=== PATIENT | male | born 1995 | race Caucasian/White ===

== ENCOUNTER 2016-08-22 09:52 | Inpatient (IN) | payer OTHER ==
[2016-08-22 10:38] VITALS: BMI 31.4
--- NOTE | 2016-08-22 11:25 | HP ---
Admission [facility] Allergies/Adverse Reactions: Allergies Allergy/AdvReac Type Severity Reaction Status Date / Time No Known Allergies Allergy Verified 08/22/16 10:58 - Ebola screening Have you traveled outside of the country in the last 21 days: No Have you had contact with anyone from an Ebola affected area: No Have you been sick,other than usual withdrawal symptoms: No Do you have a fever: No Patient History - Patient Medical History Hx Anemia: No Hx Asthma: No Hx Chronic Obstructive Pulmonary Disease (COPD): No Hx Cancer: No Hx Cardiac Disorders: No Hx Congestive Heart Failure: No Hx Hypertension: No Hx Hypercholesterolemia: No Hx Pacemaker: No HX Cerebrovascular Accident: No Hx Seizures: No Hx Dementia: No Hx Diabetes: No Hx Gastrointestinal Disorders: No Hx Liver Disease: No Hx Genitourinary Disorders: No Hx Sexually Transmitted Disorders: No Hx Renal Disease (ESRD): No Hx Thyroid Disease: No Hx Human Immunodeficiency Virus (HIV): No Hx Hepatitis C: No Hx Depression: Yes Hx Suicide Attempt: No Hx Bipolar Disorder: Yes Hx Schizophrenia: No - Patient Surgical History Past Surgical History: No Hx Neurologic Surgery: No Hx Cataract Extraction: No Hx Cardiac Surgery: No Hx Lung Surgery: No Hx Breast Surgery: No Hx Breast Biopsy: No Hx Abdominal Surgery: No Hx Appendectomy: No Hx Cholecystectomy: No Hx Genitourinary Surgery: No Hx Section: No Hx Orthopedic Surgery: No Anesthesia Reaction: No - PPD History Previous Implant?: Yes Documented Results: Negative w/proof Implanted On Prior [facility] Admission?: Yes Date: 05/11/16 Results: 0 mm - Smoking Cessation Smoking history: Current every day smoker Have you smoked in the past 12 months: Yes Aproximately how many cigarettes per day: 20 Hx Chewing Tobacco Use: No Initiated information on smoking cessation: Yes - Substances Abused Heroin Route: Inhalation Frequency: Daily Amount used: 30 bags Age of first use: 18 Date of Last Use: 08/22/16 Alprazolam (Xanax) Route: Oral Frequency: Daily Amount used: 8mg Age of first use: 15 Date of Last Use: 08/21/16 Alcohol Route: Oral Frequency: Daily Amount used: 1 pint cognac Age of first use: 16 Date of Last Use: 08/20/16 Marijuana/Hashish Route: Smoking Frequency: 1-2 times per week Amount used: 4 grams Age of first use: 13 Date of Last Use: 08/21/16 Admission Physical Exam [facility] - Vital Signs Vital Signs: Vital Signs - 24 hr 08/22/16 10:36 Temperature 99 F Pulse Rate 77 Respiratory 18 Rate Blood Pressure 121/75 Cleared for Admission [facility] - Detox or Rehab [facility] Level of Care: Medically Managed [facility] Breath Alcohol Content Breath Alcohol Content: 0 Urine Drug Screen - Results Drug Screen Negative: No Urine Drug Screen Results: THC-Marijuana, OPI-Opiates, BZO-Benzodiazepines, MTD- Methadone, TCA-Tricyclic Antidepress, OXY-Oxycodone
--- NOTE | 2016-08-22 11:33 | HP ---
COWS - Scale Resting Pulse: 0= [place] 80 or Below Sweatin= Chills/Flushing Restless Observation: 3= Extraneous Movement Pupil Size: 2= Moderately Dilated Bone or Joint Aches: 4=Acute Joint/Muscle Pain Runny Nose/ Eye Tearin= Nasal Congestion GI Upset > 30mins: 2= Nausea/Diarrhea Tremor Observation: 1= Tremor [place], Not Seen Yawning Observation: 2= >3x During Session Anxiety or Irritability: 1=Feels Anxious/Irritable Goose Flesh Skin: 0=Smooth Skin COWS Score: 17 CIWA Score - CIWA Score Nausea/Vomitin Muscle Tremors: 4-Moderate,w/Arms Extend Anxiety: 4-Mod. Anxious/Guarded Agitation: 4-Moderately Restless Paroxysmal Sweats: 1-Minimal Palms Moist Orientation: 0-Oriented Tacttile Disturbances: 3-Moderate Itch/Numb/Burn Auditory Disturbances: 0-None Visual Disturbances: 0-None Headache: 1-Very Mild CIWA-Ar Total Score: 20 Admission ROS [facility] - HPI Chief Complaint: DETOX [place] FOR HEROIN,ALCOHOL AND BENZO DEPENDENCE Allergies/Adverse Reactions: Allergies Allergy/AdvReac Type Severity Reaction Status Date / Time No Known Allergies Allergy Verified 08/22/16 10:58 History of Present Illness: 20 Y/O H/M WITH A HX OF HEROIN,ALCOHOL,XANAX AND MARIJUANA DEPENDENCE SEEKING DETOX [place] Exam Limitations: No Limitations - Ebola screening Have you traveled outside of the country in the last 21 days: No Have you had contact with anyone from an Ebola affected area: No Have you been sick,other than usual withdrawal symptoms: No Do you have a fever: No - Review of Systems Constitutional: Chills, Loss of Appetite, Night Sweats, Changes in sleep EENT: reports: Blurred Vision, Dental Problems (MISSING TEETH) Respiratory: reports: No Symptoms reported Cardiac: reports: Lightheadedness GI: reports: Constipated, Diarrhea, Nausea, Vomiting, Abdominal cramping : reports: No Symptoms Reported Musculoskeletal: reports: Back Pain, Joint Pain, Muscle Pain Integumentary: reports: No Symptoms Reported Neuro: reports: Headache Endocrine: reports: No Symptoms Reported Hematology: reports: No Symptoms Reported Psychiatric: reports: Orientated x3, Anxious Other Systems: Reviewed and Negative Patient History - Patient Medical History Hx Anemia: No Hx Asthma: No Hx Chronic Obstructive Pulmonary Disease (COPD): No Hx Cancer: No Hx Cardiac Disorders: No Hx Congestive Heart Failure: No Hx Hypertension: No Hx Hypercholesterolemia: No Hx Pacemaker: No HX Cerebrovascular Accident: No Hx Seizures: No Hx Dementia: No Hx Diabetes: No Hx Gastrointestinal Disorders: No Hx Liver Disease: No Hx Genitourinary Disorders: No Hx Sexually Transmitted Disorders: No Hx Renal Disease (ESRD): No Hx Thyroid Disease: No Hx Human Immunodeficiency Virus (HIV): No Hx Hepatitis C: No Hx Depression: Yes (AND ANXIETY- GETS KLONOPIN AND SEROQUEL) Hx Suicide Attempt: No Hx Bipolar Disorder: Yes Hx Schizophrenia: No - Patient Surgical History Past Surgical History: No Hx Neurologic Surgery: No Hx Cataract Extraction: No Hx Cardiac Surgery: No Hx Lung Surgery: No Hx Breast Surgery: No Hx Breast Biopsy: No Hx Abdominal Surgery: No Hx Appendectomy: No Hx Cholecystectomy: No Hx Genitourinary Surgery: No Hx Section: No Hx Orthopedic Surgery: No Anesthesia Reaction: No - PPD History Previous Implant?: Yes Documented Results: Negative w/proof Implanted On Prior [facility] Admission?: Yes Date: 05/11/16 Results: 0 mm PPD to be Administered?: No - Reproductive History Patient is a Female of Child Bearing Age (11 -55 yrs old): No (MALE) - Smoking Cessation Smoking history: Current every day smoker Have you smoked in the past 12 months: Yes Aproximately how many cigarettes per day: 20 Hx Chewing Tobacco Use: No Initiated information on smoking cessation: Yes 'Breaking Loose' booklet given: 08/22/16 - Substance & Tx. History Hx Alcohol Use: Yes (COGNAC) Hx Substance Use: Yes (HEROIN/XANAX/MARIJUANA) Substance Use Type: Alcohol, Heroin, Marijuana, Tranquilizers Hx Substance Use Treatment: Yes ([facility]) - Substances Abused Heroin Route: Inhalation Frequency: Daily Amount used: 30 bags Age of first use: 18 Date of Last Use: 08/22/16 Alprazolam (Xanax) Route: Oral Frequency: Daily Amount used: 8mg Age of first use: 15 Date of Last Use: 08/21/16 Alcohol Route: Oral Frequency: Daily Amount used: 1 pint cognac Age of first use: 16 Date of Last Use: 08/20/16 Marijuana/Hashish Route: Smoking Frequency: 1-2 times per week Amount used: 4 grams Age of first use: 13 Date of Last Use: 08/21/16 Family Disease History - Family Disease History Family Disease History: Diabetes: Grandparent (GM) Admission Physical Exam [facility] - Vital Signs Vital Signs: Vital Signs - 24 hr 08/22/16 10:36 Temperature 99 F Pulse Rate 77 Respiratory 18 Rate Blood Pressure 121/75 - Physical General Appearance: Yes: Moderate Distress, Irritable, Anxious HEENTM: Yes: EOMI, Normocephalic, KATE, Pharynx Normal, Nasal Congestion Respiratory: Yes: Chest Non-Tender, Lungs Clear, Normal Breath Sounds, No Respiratory Distress Neck: Yes: Supple, Trachea in good position Cardiology: Yes: Regular Rhythm, Regular Rate, S1, S2 Abdominal: Yes: Normal Bowel Sounds, Non Tender, Soft Genitourinary: Yes: Other (N/C) Back: Yes: Within Normal Limits Musculoskeletal: Yes: full range of Motion, Gait Steady Extremities: Yes: Normal Range of Motion, Non-Tender Neurological: Yes: tourist agent II-XII NML intact, Fully Oriented, Alert, Motor Strength 5/5 Integumentary: Yes: Normal Color, Dry, Warm Lymphatic: Yes: Within Normal Limits - Diagnostic (1) Cannabis dependence Current Visit: Yes Status: Acute (2) Opioid dependence with withdrawal Current Visit: Yes Status: Acute (3) Sedative, hypnotic or anxiolytic dependence with withdrawal, uncomplicated Current Visit: Yes Status: Acute (4) Nicotine dependence Current Visit: Yes Status: Chronic Qualifiers: Nicotine product type: cigarettes Substance use status: uncomplicated Qualified Code(s): F17.210 - Nicotine dependence, cigarettes, uncomplicated (5) Alcohol dependence with uncomplicated withdrawal Current Visit: Yes Status: Acute Cleared for Admission [facility] - Detox or Rehab [facility] Level of Care: Medically Managed Detox Regimen/Protocol: Methadone/Valium [facility] Breath Alcohol Content Breath Alcohol Content: 0 Urine Drug Screen - Results Drug Screen Negative: No Urine Drug Screen Results: THC-Marijuana, OPI-Opiates, BZO-Benzodiazepines, MTD- Methadone, TCA-Tricyclic Antidepress, OXY-Oxycodone
[2016-08-22] MEDS ORDERED: guaiFENesin/D-METHORPHAN HB 10 ML UNIT-DOSE CUPS PO PRN (11:48)
[2016-08-22] MEDS ORDERED: ACETAMINOPHEN 325 MG TABLET (FP) PO PRN (11:48)
[2016-08-22] MEDS ORDERED: MAGNESIUM HYDROX 2400MG/30ML ORAL SUSPENSION 30 ML CUP PO PRN (11:48)
[2016-08-22] MEDS ORDERED: IBUPROFEN 400 MG TABLET (FP) PO PRN (11:48)
[2016-08-22] MEDS ORDERED: MENTHOL/PHENOL 1 EACH UD MM PRN (11:48)
[2016-08-22] MEDS ORDERED: MAGNESIUM CITRATE 300 ML BOTTLE PO PRN (11:48)
[2016-08-22] MEDS ORDERED: P-EPHED 60MG/TRIPROLIDI 2.5MG TABLET PO PRN (11:48)
[2016-08-22] MEDS ORDERED: LOPERAMIDE HCL 2 MG CAPSULE PO PRN (11:48)
[2016-08-22] MEDS ORDERED: MAG HYDROX/AL HYDROX/SIMETH 30 ML UNIT-DOSE CUP PO PRN (11:48)
[2016-08-22] MEDS ORDERED: diazePAM 5 MG TABLET PO ONE (12:52)
[2016-08-22] MEDS ORDERED: METHADONE HCL 10 MG TABLET (FOR DETOX USE ONLY) PO ONE ×2 (12:53→23:00)
[2016-08-22] MEDS: NICOTINE 21 MG/24 HOURS TOPICAL PATCH TD SCH (13:44)
[2016-08-22] MEDS: diazePAM 5 MG TABLET PO SCH ×2 (13:50→22:11)
--- NOTE | 2016-08-22 15:38 | EKG ---
Test Reason : Blood Pressure : / mmHG Vent. Rate : 053 BPM Atrial Rate : 053 BPM P-R Int : 128 ms QRS Dur : 092 ms QT Int : 436 ms P-R-T Axes : 051 077 061 degrees QTc Int : 409 ms SINUS BRADYCARDIA WITH SINUS ARRHYTHMIA WITH OCCASIONAL PREMATURE VENTRICULAR COMPLEXES OTHERWISE NORMAL ECG NO PREVIOUS ECGS AVAILABLE Confirmed by KATARZYNA CRAMER MD ([id number]) on 08/22/2016 3:38:27 PM Referred By: Confirmed By:KATARZYNA CRAMER MD
[2016-08-22] MEDS: diazePAM 5 MG TABLET PO PRN (16:49)
[2016-08-22] MEDS: NICOTINE POLACRILEX 4 MG GUM BUC PRN (18:45)
[2016-08-22 20:15] LABS: URINE APPEARANCE CLEAR; URINE BILIRUBIN NEGATIVE (NEGATIVE); URINE BLOOD NEGATIVE (NEGATIVE); URINE COLOR YELLOW; URINE GLUCOSE (UA) NEGATIVE (NEGATIVE); URINE KETONE NEGATIVE (NEGATIVE); URINE LEUK ESTERASE NEGATIVE (NEGATIVE); URINE NITRITE NEGATIVE (NEGATIVE); URINE PROTEIN NEGATIVE (NEGATIVE); URINE UROBILINOGEN 2.0 E.U/dl E.U./dl (0.2-1.0)
[2016-08-22] MEDS: THIAMINE HCL 100 MG TABLET (FP) PO SCH (22:10)
[2016-08-22] MEDS: diphenhydrAMINE HCL 50 MG CAPSULE PO PRN (22:13)
[2016-08-23] MEDS: diazePAM 5 MG TABLET PO SCH ×3 (05:59→22:26)
[2016-08-23] MEDS: diazePAM 5 MG TABLET PO PRN ×2 (08:45→17:05)
[2016-08-23] MEDS ORDERED: METHADONE HCL 10 MG TABLET (FOR DETOX USE ONLY) PO SCH (10:00)
[2016-08-23 10:41] LABS: MCH 31.3 pg (25.7-33.7); MCHC 33.5 g/dl (32.0-35.9); MEAN CELL VOLUME 93.2 fl (80-96); PLATELET COUNT 240 K/MM3 (134-434); RDW 13.9 % (11.9-15.9); WHITE BLOOD COUNT 8.3 K/mm3 (4.0-10.0)
[2016-08-23] MEDS: NICOTINE 21 MG/24 HOURS TOPICAL PATCH TD SCH (10:46)
[2016-08-23] MEDS: PRENATAL VITAMINS W/ FOLIC ACID TABLET (FP) PO SCH (10:46)
[2016-08-23 11:11] LABS: ALBUMIN 4.1 g/dl (3.4-5.0); ALK PHOS 106 U/L (45-117); ANION GAP 9 (8-16); BILIRUBIN,TOTAL 0.3 mg/dL (0.2-1.0); CALCIUM 8.6 mg/dL (8.5-10.1); CO2 27 mmol/L (21-32); CREATININE 0.8 mg/dL (0.7-1.3); GLUCOSE,RANDOM 102 mg/dL (74-106); SGOT/AST 44 U/L (15-37); SGPT/ALT 78 U/L (12-78); TOT PROT 7.2 g/dl (6.4-8.2)
--- NOTE | 2016-08-23 11:51 | PN ---
[facility] CIWA - CIWA Score Nausea/Vomitin Muscle Tremors: 4-Moderate,w/Arms Extend Anxiety: 4-Mod. Anxious/Guarded Agitation: 4-Moderately Restless Paroxysmal Sweats: 3 Orientation: 0-Oriented Tacttile Disturbances: 1-Very Mild Itch/Numbness Auditory Disturbances: 0-None Visual Disturbances: 0-None Headache: 0-None Present CIWA-Ar Total Score: 19 S COWS - Scale Resting Pulse: 1= [place] 81-100 Sweatin= Chills/Flushing Restless Observation: 1= Difficult to Sit Still Pupil Size: 1= Pupils >than Normal Bone or Joint Aches: 1= Mild Discomfort Runny Nose/ Eye Tearin= Nasal Congestion GI Upset > 30mins: 2= Nausea/Diarrhea Tremor Observation of Outstretched Hands: 2= Slight Tremor Visible Yawning Observation: 1= 1-2x During Session Anxiety or Irritability: 2=Irritable/Anxious Goose Flesh Skin: 3=Piloerection COWS Score: 16 [facility] Progress Note (SOAP) Subjective: nause, sweats, interrupted sleep, anxiety, tremors Objective: 08/23/16 11:51 Laboratory Tests 08/22/16 08/23/16 08/23/16 14:00 06:00 06:00 WBC 8.3 RBC 4.55 Hgb 14.2 Hct 42.4 MCV 93.2 MCHC 33.5 RDW 13.9 Plt Count 240 D MPV 10.0 Sodium 139 Potassium 4.2 Chloride 103 Carbon Dioxide 27 Anion Gap 9 BUN 12 Creatinine 0.8 Creat Clearance w eGFR > 60 Random Glucose 102 Calcium 8.6 Total Bilirubin 0.3 AST 44 H D ALT 78 D Alkaline Phosphatase 106 Total Protein 7.2 Albumin 4.1 Urine Color Yellow Urine Appearance Clear Urine pH 5.0 Ur Specific [place] 1.023 Urine Protein Negative Urine Glucose (UA) Negative Urine Ketones Negative Urine Blood Negative Urine Nitrite Negative Urine Bilirubin Negative Urine Urobilinogen 2.0 e.u/dl Ur Leukocyte Esterase Negative Vital Signs - 24 hr 08/22/16 08/22/16 08/22/16 14:24 18:02 22:29 Temperature 97.1 F L 96.8 F L 96.3 F L Pulse Rate 64 79 67 Respiratory 18 16 18 Rate Blood Pressure 121/76 108/68 107/67 08/23/16 08/23/16 08/23/16 00:32 03:30 06:40 Temperature 96.6 F L Pulse Rate 78 Respiratory 18 18 16 Rate Blood Pressure 102/65 08/23/16 09:38 Temperature 96.0 F L Pulse Rate 87 Respiratory 20 Rate Blood Pressure 111/65 Assessment: 08/23/16 11:51 withdrawal sx Plan: cont detox
--- NOTE | 2016-08-23 12:27 | CONSULT ---
[facility] Psychiatric Consult - Data Date of interview: 08/23/16 Admission source: [facility] Identifying data: Readmission to [facility] for this 20 y/o male seeking detox treatment on for heroin,benzodiazepine,alcohol and marijuana dependence.Patient is single without children,domiciled (lives with his father),unemployed and dependent on his parents for financial support. Substance Abuse History: - Smoking Cessation. Smoking history: Current every day smoker. Have you smoked in the past 12 months: Yes. Aproximately how many cigarettes per day: 20. Hx Chewing Tobacco Use: No. Initiated information on smoking cessation: Yes. 'Breaking Loose' booklet given: 08/22/16. - Substance & Tx. History. Hx Alcohol Use: Yes (COGNAC). Hx Substance Use: Yes (HEROIN/ XANAX/MARIJUANA). Substance Use Type: Alcohol, Heroin, Marijuana, Tranquilizers. Hx Substance Use Treatment: Yes ([facility]). - Substances Abused. Heroin. Route: Inhalation. Frequency: Daily. Amount used: 30 bags. Age of first use: 18. Date of Last Use: 08/22/16. Alprazolam (Xanax) . Route: Oral. Frequency: Daily. Amount used: 8mg. Age of first use: 15. Date of Last Use: 08/21/16. Alcohol. Route: Oral. Frequency: Daily. Amount used: 1 pint cognac. Age of first use: 16. Date of Last Use: 08/20/16. Marijuana/Hashish. Route: Smoking. Frequency: 1-2 times per week. Amount used: 4 grams. Age of first use: 13. Date of Last Use: 08/21/16. Confirmed by patient. Medical History: Patient endorses good general health. 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 Physical/Sexual Abuse/Trauma History: Patient denies. Mental Status Exam - Mental Status Exam Alert and Oriented to: Time, Place, Person Cognitive Function: Good Patient Appearance: Well Groomed Mood: Nervous, Anxious Affect: Mood Congruent Patient Behavior: Appropriate, Cooperative Speech Pattern: Clear Voice Loudness: Normal Thought Process: Goal Oriented Thought Disorder: Not Present Hallucinations: Denies Suicidal Ideation: Denies Homicidal Ideation: Denies Insight/Judgement: Poor Sleep: Poorly, Difficulty falling asleep Appetite: Good Muscle strength/Tone: Normal Gait/Station: Normal Psychiatric Findings - Problem List ([place] 1, 2,3) (1) Alcohol dependence with uncomplicated withdrawal Current Visit: Yes Status: Acute (2) Cannabis dependence Current Visit: Yes Status: Acute (3) Opioid dependence with withdrawal Current Visit: Yes Status: Acute (4) Sedative, hypnotic or anxiolytic dependence with withdrawal, uncomplicated Current Visit: Yes Status: Acute (5) Nicotine dependence Current Visit: Yes Status: Acute Qualifiers: Nicotine product type: cigarettes Substance use status: uncomplicated Qualified Code(s): F17.210 - Nicotine dependence, cigarettes, uncomplicated (6) Substance induced mood disorder Current Visit: Yes Status: Acute (7) Insomnia Current Visit: Yes Status: Acute - Initial Treatment Plan Initial Treatment Plan: Psychoeducation.Detoxification.Seroquel 100 mg po hs.Review of pharmacy claims shows filled scripts for trazodone 50 mg/hs # 30 on 08/07/16 @ [facility] (no seroquel).Mr Sosa has declined to resume trazodone.Previous records are reviewed (consistent with seroquel 100 mg/ hs).Side effects/benefits discussed with the patient.He agrees with this plan.Observation.
[2016-08-23] MEDS: CYCLOBENZAPRINE HCL 10 MG TABLET (FP) PO SCH ×2 (14:10→22:26)
[2016-08-23] MEDS ORDERED: QUEtiapine FUMARATE 100 MG TABLET (FP) PO SCH (22:00)
[2016-08-23] MEDS: THIAMINE HCL 100 MG TABLET (FP) PO SCH (22:26)
[2016-08-23] MEDS: diphenhydrAMINE HCL 50 MG CAPSULE PO PRN (22:29)
[2016-08-24] MEDS: diazePAM 5 MG TABLET PO PRN ×3 (05:47→16:43)
[2016-08-24] MEDS: CYCLOBENZAPRINE HCL 10 MG TABLET (FP) PO SCH ×3 (05:47→22:16)
[2016-08-24] MEDS: PRENATAL VITAMINS W/ FOLIC ACID TABLET (FP) PO SCH (10:49)
[2016-08-24] MEDS: NICOTINE 21 MG/24 HOURS TOPICAL PATCH TD SCH (10:49)
[2016-08-24] MEDS: diazePAM 5 MG TABLET PO SCH ×2 (10:50→22:15)
[2016-08-24] MEDS: METHADONE HCL 5 MG TABLET (FOR DETOX USE ONLY) PO SCH (10:50)
--- NOTE | 2016-08-24 11:21 | PN ---
S CIWA - CIWA Score Nausea/Vomitin Muscle Tremors: 4-Moderate,w/Arms Extend Anxiety: 4-Mod. Anxious/Guarded Agitation: 4-Moderately Restless Paroxysmal Sweats: 3 Orientation: 0-Oriented Tacttile Disturbances: 0-None Auditory Disturbances: 0-None Visual Disturbances: 0-None Headache: 2-Mild CIWA-Ar Total Score: 20 [facility] COWS - Scale Resting Pulse: 1= [place] 81-100 Sweatin= Chills/Flushing Restless Observation: 1= Difficult to Sit Still Pupil Size: 1= Pupils >than Normal Bone or Joint Aches: 1= Mild Discomfort Runny Nose/ Eye Tearin= Runny Nose/Eyes GI Upset > 30mins: 2= Nausea/Diarrhea Tremor Observation of Outstretched Hands: 1= Tremor [place], Not Seen Yawning Observation: 2= >3x During Session Anxiety or Irritability: 2=Irritable/Anxious Goose Flesh Skin: 3=Piloerection COWS Score: 17 S Progress Note (SOAP) Subjective: nausea, sweats, itnerrupted sleep, anxiety, tremor insomnia, back pain, headache Objective: 08/24/16 11:19 Vital Signs - 24 hr 08/23/16 08/23/16 08/23/16 14:16 17:34 22:50 Temperature 95.6 F L 97.5 F L 97.3 F L Pulse Rate 75 93 H 99 H Respiratory 18 18 18 Rate Blood Pressure 101/61 111/68 97/66 08/24/16 08/24/16 08/24/16 00:44 03:49 06:40 Temperature 97.4 F L Pulse Rate 111 H Respiratory 18 18 16 Rate Blood Pressure 90/60 08/24/16 10:24 Temperature 98.0 F Pulse Rate 100 H Respiratory 18 Rate Blood Pressure 111/71 Laboratory Tests 08/22/16 08/23/16 08/23/16 14:00 06:00 06:00 WBC 8.3 RBC 4.55 Hgb 14.2 Hct 42.4 MCV 93.2 MCHC 33.5 RDW 13.9 Plt Count 240 D MPV 10.0 Sodium 139 Potassium 4.2 Chloride 103 Carbon Dioxide 27 Anion Gap 9 BUN 12 Creatinine 0.8 Creat Clearance w eGFR > 60 Random Glucose 102 Calcium 8.6 Total Bilirubin 0.3 AST 44 H D ALT 78 D Alkaline Phosphatase 106 Total Protein 7.2 Albumin 4.1 Urine Color Yellow Urine Appearance Clear Urine pH 5.0 Ur Specific [place] 1.023 Urine Protein Negative Urine Glucose (UA) Negative Urine Ketones Negative Urine Blood Negative Urine Nitrite Negative Urine Bilirubin Negative Urine Urobilinogen 2.0 e.u/dl Ur Leukocyte Esterase Negative RPR Titer 08/23/16 06:00 WBC RBC Hgb Hct MCV MCHC RDW Plt Count MPV Sodium Potassium Chloride Carbon Dioxide Anion Gap BUN Creatinine Creat Clearance w eGFR Random Glucose Calcium Total Bilirubin AST ALT Alkaline Phosphatase Total Protein Albumin Urine Color Urine Appearance Urine pH Ur Specific [place] Urine Protein Urine Glucose (UA) Urine Ketones Urine Blood Urine Nitrite Urine Bilirubin Urine Urobilinogen Ur Leukocyte Esterase RPR Titer Nonreactive elevated bp, tachycardia Assessment: 08/24/16 11:20 withdrawal sx Plan: cont detox, symptomatic relief medicaqtions ordered
--- NOTE | 2016-08-24 15:09 | PN ---
Psychiatric Progress Note Vital Signs: Vital Signs Period Temp Pulse Resp BP Sys/Nash Pulse Ox Last 24 Hr 97.3 F-98.2 F 70-111 16-20 90-118/60-74 Date of Session: 08/24/16 Chief Complaint:: Insomnia HPI: Patient asking to increase his Seroquel due to insomnia Current Medications: Active Medications Generic Name Dose Route Start Last Admin Trade Name Freq PRN Reason Stop Dose Admin Acetaminophen 650 mg 08/22/16 11:48 Tylenol - PO Q4H PRN FEVER OR PAIN Al Hydroxide/Mg Hydroxide 30 ml 08/22/16 11:48 Mylanta Oral Suspension - PO Q6H PRN DYSPEPSIA Clonidine 0.1 mg 08/24/16 22:00 Catapres - PO BID ESTELLE Cyclobenzaprine HCl 10 mg 08/23/16 14:00 08/24/16 13:26 Flexeril - PO 10 mg TID ESTELLE Administration Diazepam 10 mg 08/22/16 11:48 08/24/16 12:41 Valium - PO 08/25/16 11:48 10 mg Q4H PRN Administration WITHDRAWAL(CONT SUBST) Diazepam 5 mg 08/24/16 10:00 08/24/16 10:50 Valium - PO 08/25/16 22:01 5 mg BID ESTELLE Administration Diazepam 5 mg 08/26/16 10:00 Valium - PO 08/26/16 10:01 DAILY ESTELLE Diphenhydramine HCl 50 mg 08/22/16 11:48 08/23/16 22:29 Benadryl - PO 50 mg HSMR1 PRN Administration INSOMNIA Eucalyptus/Menthol/Phenol/Sorbitol 1 each 08/22/16 11:48 Cepastat Lozenge - MM Q4H PRN SORE THROAT Guaifenesin 10 ml 08/22/16 11:48 Robitussin Dm - PO Q6H PRN COUGH Hydroxyzine Pamoate 25 mg 08/22/16 11:48 Vistaril - PO Q4H PRN AGITATION Loperamide HCl 4 mg 08/22/16 11:48 Imodium - PO Q6H PRN DIARRHEA Magnesium Citrate 300 ml 08/22/16 11:48 Citroma - PO Q48H PRN CONSTIPATION Magnesium Hydroxide 30 ml 08/22/16 11:48 Milk Of Magnesia - PO DAILY PRN CONSTIPATION Methadone HCl 10 mg 08/26/16 10:00 Dolophine - PO 08/26/16 10:01 DAILY ESTELLE Methadone HCl 15 mg 08/24/16 10:00 08/24/16 10:50 Dolophine - PO 08/25/16 10:01 15 mg DAILY ESTELLE Administration Methadone HCl 5 mg 08/27/16 06:00 Dolophine - PO 08/27/16 06:01 DAILY@0600 ESTELLE Naproxen 500 mg 08/24/16 22:00 Naprosyn - PO BID ESTELLE Nicotine 21 mg 08/22/16 12:54 08/24/16 10:49 Nicoderm Patch - TD 21 mg DAILY ESTELLE Administration Nicotine Polacrilex 4 mg 08/22/16 11:48 08/22/16 18:45 Nicorette Gum - BUC 4 mg Q2H PRN Administration NICOTINE REPLACEMENT RX Multivit/Folic Acid/Iron 1 tab 08/23/16 10:00 08/24/16 10:49 Vitamins (Sjr) - PO 1 tab DAILY ESTELLE Administration Pseudoephedrine/Triprolidine 1 combo 08/22/16 11:48 Actifed - PO TID PRN NASAL CONGESTION Quetiapine Fumarate 150 mg 08/24/16 22:00 Seroquel - PO HS ESTELLE Thiamine HCl 100 mg 08/22/16 22:00 08/23/16 22:26 Vitamin B1 - PO 100 mg HS ESTELLE Administration Zolpidem Tartrate 10 mg 08/24/16 22:00 Ambien - PO 08/27/16 21:59 HS PRN INSOMNIA Medication(s) Change(s): Seroquel 150mg po qhs Mental Status Exam - Mental Status Exam Alert and Oriented to: Person Cognitive Function: Fair Patient Appearance: Unkempt Mood: Sad Affect: Flat Patient Behavior: Cooperative Speech Pattern: Appropriate Voice Loudness: Mildly Soft/Quiet Thought Process: Goal Oriented Thought Disorder: Being Controlled Hallucinations: Denies Suicidal Ideation: Denies Homicidal Ideation: Denies Insight/Judgement: Fair Sleep: Difficulty falling asleep Appetite: Fair Muscle strength/Tone: Normal Gait/Station: Normal Additional Comments: Seroquel 150mg po qhs Psychiatric Treatment Plan - Problem List (1) Alcohol dependence with uncomplicated withdrawal Current Visit: Yes (2) Cannabis dependence Current Visit: Yes (3) Nicotine dependence Current Visit: Yes Qualifiers: Nicotine product type: cigarettes Substance use status: uncomplicated Qualified Code(s): F17.210 - Nicotine dependence, cigarettes, uncomplicated (4) Opioid dependence with withdrawal Current Visit: Yes (5) Sedative, hypnotic or anxiolytic dependence with withdrawal, uncomplicated Current Visit: Yes (6) Substance induced mood disorder Current Visit: Yes Initial treatment plan: Seroquel 150mg po qhs
[2016-08-24] MEDS: NAPROXEN 500 MG TABLET (FP) PO SCH (22:15)
[2016-08-24] MEDS: THIAMINE HCL 100 MG TABLET (FP) PO SCH (22:15)
[2016-08-24] MEDS: QUEtiapine FUMARATE 50 MG TABLET PO SCH (22:15)
[2016-08-24] MEDS: cloNIDine HCL 0.1 MG TABLET PO SCH (22:16)
[2016-08-24] MEDS: ZOLPIDEM TARTRATE 10 MG TABLET (PARK CARE ONLY) PO PRN (22:19)
[2016-08-25] MEDS: CYCLOBENZAPRINE HCL 10 MG TABLET (FP) PO SCH ×3 (05:49→22:15)
[2016-08-25] MEDS: diazePAM 5 MG TABLET PO PRN (05:49)
[2016-08-25] MEDS: PRENATAL VITAMINS W/ FOLIC ACID TABLET (FP) PO SCH (10:51)
[2016-08-25] MEDS: NAPROXEN 500 MG TABLET (FP) PO SCH ×2 (10:51→22:15)
[2016-08-25] MEDS: NICOTINE 21 MG/24 HOURS TOPICAL PATCH TD SCH (10:51)
[2016-08-25] MEDS: METHADONE HCL 5 MG TABLET (FOR DETOX USE ONLY) PO SCH (10:51)
[2016-08-25] MEDS: diazePAM 5 MG TABLET PO SCH ×2 (10:51→22:15)
[2016-08-25] MEDS: cloNIDine HCL 0.1 MG TABLET PO SCH ×2 (10:52→22:15)
--- NOTE | 2016-08-25 11:51 | PN ---
[facility] Progress Note (SOAP) Subjective: nausea, sweats, interrupted sleep, anxiety, tremors Objective: 08/25/16 11:50 Vital Signs - 8 hr 08/25/16 08/25/16 06:37 09:59 Temperature 96.1 F L 97.5 F L Pulse Rate 93 H 100 H Respiratory 18 18 Rate Blood Pressure 97/64 124/68 Laboratory Tests 08/22/16 08/23/16 08/23/16 14:00 06:00 06:00 WBC 8.3 RBC 4.55 Hgb 14.2 Hct 42.4 MCV 93.2 MCHC 33.5 RDW 13.9 Plt Count 240 D MPV 10.0 Sodium 139 Potassium 4.2 Chloride 103 Carbon Dioxide 27 Anion Gap 9 BUN 12 Creatinine 0.8 Creat Clearance w eGFR > 60 Random Glucose 102 Calcium 8.6 Total Bilirubin 0.3 AST 44 H D ALT 78 D Alkaline Phosphatase 106 Total Protein 7.2 Albumin 4.1 Urine Color Yellow Urine Appearance Clear Urine pH 5.0 Ur Specific [place] 1.023 Urine Protein Negative Urine Glucose (UA) Negative Urine Ketones Negative Urine Blood Negative Urine Nitrite Negative Urine Bilirubin Negative Urine Urobilinogen 2.0 e.u/dl Ur Leukocyte Esterase Negative RPR Titer 08/23/16 06:00 WBC RBC Hgb Hct MCV MCHC RDW Plt Count MPV Sodium Potassium Chloride Carbon Dioxide Anion Gap BUN Creatinine Creat Clearance w eGFR Random Glucose Calcium Total Bilirubin AST ALT Alkaline Phosphatase Total Protein Albumin Urine Color Urine Appearance Urine pH Ur Specific [place] Urine Protein Urine Glucose (UA) Urine Ketones Urine Blood Urine Nitrite Urine Bilirubin Urine Urobilinogen Ur Leukocyte Esterase RPR Titer Nonreactive Assessment: 08/25/16 11:50 withdrawal sx Plan: cont detox, fluids, ambulate
[2016-08-25] MEDS: hydrOXYzine PAMOATE 25 MG CAPSULE (FP) PO PRN ×2 (12:27→17:27)
[2016-08-25] MEDS: ZOLPIDEM TARTRATE 10 MG TABLET (PARK CARE ONLY) PO PRN (22:15)
[2016-08-25] MEDS: QUEtiapine FUMARATE 50 MG TABLET PO SCH (22:15)
[2016-08-25] MEDS: THIAMINE HCL 100 MG TABLET (FP) PO SCH (22:15)
[2016-08-26] MEDS: CYCLOBENZAPRINE HCL 10 MG TABLET (FP) PO SCH ×3 (05:27→22:35)
[2016-08-26] MEDS: hydrOXYzine PAMOATE 25 MG CAPSULE (FP) PO PRN ×3 (05:28→18:16)
[2016-08-26] MEDS ORDERED: METHADONE HCL 10 MG TABLET (FOR DETOX USE ONLY) PO SCH (10:00)
[2016-08-26] MEDS ORDERED: diazePAM 5 MG TABLET PO SCH (10:00)
[2016-08-26] MEDS: NAPROXEN 500 MG TABLET (FP) PO SCH ×2 (10:41→22:34)
[2016-08-26] MEDS: PRENATAL VITAMINS W/ FOLIC ACID TABLET (FP) PO SCH (10:41)
[2016-08-26] MEDS: cloNIDine HCL 0.1 MG TABLET PO SCH ×2 (10:41→22:35)
[2016-08-26] MEDS: NICOTINE 21 MG/24 HOURS TOPICAL PATCH TD SCH (10:42)
--- NOTE | 2016-08-26 12:25 | PN ---
[facility] Progress Note (SOAP) Subjective: SWEATING,INTERRUPTED SLEEP,RESTLESS Objective: 08/26/16 12:23 Vital Signs - 8 hr 08/26/16 08/26/16 06:20 10:51 Temperature 97.3 F L 96.2 F L Pulse Rate 87 110 H Respiratory 16 20 Rate Blood Pressure 100/70 115/79 Laboratory Last Values WBC 8.3 K/mm3 (4.0-10.0) 08/23/16 06:00 RBC 4.55 M/mm3 (4.00-5.60) 08/23/16 06:00 Hgb 14.2 GM/dL (11.7-16.9) 08/23/16 06:00 Hct 42.4 % (35.4-49) 08/23/16 06:00 MCV 93.2 fl (80-96) 08/23/16 06:00 MCHC 33.5 g/dl (32.0-35.9) 08/23/16 06:00 RDW 13.9 % (11.9-15.9) 08/23/16 06:00 Plt Count 240 K/MM3 (134-434) D 08/23/16 06:00 MPV 10.0 fl (7.5-11.1) 08/23/16 06:00 Sodium 139 mmol/L (136-145) 08/23/16 06:00 Potassium 4.2 mmol/L (3.5-5.1) 08/23/16 06:00 Chloride 103 mmol/L (98-107) 08/23/16 06:00 Carbon Dioxide 27 mmol/L (21-32) 08/23/16 06:00 Anion Gap 9 (8-16) 08/23/16 06:00 BUN 12 mg/dL (7-18) 08/23/16 06:00 Creatinine 0.8 mg/dL (0.7-1.3) 08/23/16 06:00 Creat Clearance w eGFR > 60 (>60) 08/23/16 06:00 Random Glucose 102 mg/dL (74-106) 08/23/16 06:00 Calcium 8.6 mg/dL (8.5-10.1) 08/23/16 06:00 Total Bilirubin 0.3 mg/dL (0.2-1.0) 08/23/16 06:00 AST 44 U/L (15-37) H D 08/23/16 06:00 ALT 78 U/L (12-78) D 08/23/16 06:00 Alkaline Phosphatase 106 U/L (45-117) 08/23/16 06:00 Total Protein 7.2 g/dl (6.4-8.2) 08/23/16 06:00 Albumin 4.1 g/dl (3.4-5.0) 08/23/16 06:00 Urine Color Yellow 08/22/16 14:00 Urine Appearance Clear 08/22/16 14:00 Urine pH 5.0 (5.0-8.0) 08/22/16 14:00 Ur Specific [place] 1.023 (1.001-1.035) 08/22/16 14:00 Urine Protein Negative (NEGATIVE) 08/22/16 14:00 Urine Glucose (UA) Negative (NEGATIVE) 08/22/16 14:00 Urine Ketones Negative (NEGATIVE) 08/22/16 14:00 Urine Blood Negative (NEGATIVE) 08/22/16 14:00 Urine Nitrite Negative (NEGATIVE) 08/22/16 14:00 Urine Bilirubin Negative (NEGATIVE) 08/22/16 14:00 Urine Urobilinogen 2.0 e.u/dl E.U./dl (0.2-1.0) 08/22/16 14:00 Ur Leukocyte Esterase Negative (NEGATIVE) 08/22/16 14:00 RPR Titer Nonreactive (NONREACTIVE) 08/23/16 06:00 LABS NOTED Assessment: 08/26/16 12:24 WITHDRAWAL SX. Plan: CONTINUE DETOX
[2016-08-26] MEDS: THIAMINE HCL 100 MG TABLET (FP) PO SCH (22:34)
[2016-08-26] MEDS: ZOLPIDEM TARTRATE 10 MG TABLET (PARK CARE ONLY) PO PRN (22:35)
[2016-08-26] MEDS: QUEtiapine FUMARATE 50 MG TABLET PO SCH (22:35)
[2016-08-26] MEDS: NICOTINE POLACRILEX 4 MG GUM BUC PRN (22:41)
[2016-08-27] MEDS: CYCLOBENZAPRINE HCL 10 MG TABLET (FP) PO SCH (05:50)
[2016-08-27] MEDS ORDERED: METHADONE HCL 5 MG TABLET (FOR DETOX USE ONLY) PO SCH (06:00)
[2016-08-27 06:26] VITALS: BP 103/73; PULSE 116; TEMP 97.9
--- NOTE | 2016-08-27 10:55 | DS ---
[facility] Detox Discharge Summary Admission Date: 08/22/16 - History Present History: Alcohol Dependence, Cannabis Dependence, Opioid Dependence, Sedative Dependence Pertinent Past History: Denies - Physical Exam Results Vital Signs: Vital Signs Temperature 97.9 F 08/27/16 06:26 Pulse Rate 116 H 08/27/16 06:26 Respiratory Rate 16 08/27/16 06:26 Blood Pressure 103/73 08/27/16 06:26 O2 Sat by Pulse Oximetry (%) Pertinent Admission Physical Exam Findings: Withdrawal symptoms Laboratory Tests 08/22/16 08/23/16 08/23/16 14:00 06:00 06:00 WBC 8.3 RBC 4.55 Hgb 14.2 Hct 42.4 MCV 93.2 MCHC 33.5 RDW 13.9 Plt Count 240 D MPV 10.0 Sodium 139 Potassium 4.2 Chloride 103 Carbon Dioxide 27 Anion Gap 9 BUN 12 Creatinine 0.8 Creat Clearance w eGFR > 60 Random Glucose 102 Calcium 8.6 Total Bilirubin 0.3 AST 44 H D ALT 78 D Alkaline Phosphatase 106 Total Protein 7.2 Albumin 4.1 Urine Color Yellow Urine Appearance Clear Urine pH 5.0 Ur Specific [place] 1.023 Urine Protein Negative Urine Glucose (UA) Negative Urine Ketones Negative Urine Blood Negative Urine Nitrite Negative Urine Bilirubin Negative Urine Urobilinogen 2.0 e.u/dl Ur Leukocyte Esterase Negative RPR Titer 08/23/16 06:00 WBC RBC Hgb Hct MCV MCHC RDW Plt Count MPV Sodium Potassium Chloride Carbon Dioxide Anion Gap BUN Creatinine Creat Clearance w eGFR Random Glucose Calcium Total Bilirubin AST ALT Alkaline Phosphatase Total Protein Albumin Urine Color Urine Appearance Urine pH Ur Specific [place] Urine Protein Urine Glucose (UA) Urine Ketones Urine Blood Urine Nitrite Urine Bilirubin Urine Urobilinogen Ur Leukocyte Esterase RPR Titer Nonreactive Labs noted - Treatment Hospital Course: Detox Protocol Followed, Detoxed Safely, Responded well, Discharged Condition Good - Medication Discharge Medications: Ambulatory Orders Quetiapine Fumarate [Seroquel -] 300 mg PO HS 08/22/16 Quetiapine Fumarate [Seroquel] 100 mg PO HS #30 tablet 08/23/16 - Diagnosis (1) Alcohol dependence with uncomplicated withdrawal Status: Acute (2) Cannabis dependence Status: Acute (3) Insomnia Status: Acute (4) Nicotine dependence Status: Chronic Qualifiers: Nicotine product type: cigarettes Substance use status: uncomplicated Qualified Code(s): F17.210 - Nicotine dependence, cigarettes, uncomplicated (5) Opioid dependence with withdrawal Status: Acute (6) Sedative, hypnotic or anxiolytic dependence with withdrawal, uncomplicated Status: Acute (7) Substance induced mood disorder Status: Acute (8) Anxiety Status: Chronic - AMA Did Patient Leave Against Medical Advice: No
== END 2016-08-27 08:31 | disposition home or self-care (01) | DRG 773 ==
LOC: YASAS 09:52 → Y3N 12:50
PROVIDERS: ADMIT Internal Medicine; ATTEND Internal Medicine
PROC: HZ2ZZZZ Detoxification Services for Substance Abuse Treatment (ICD-10-PCS; principal; 2016-08-22)
DX: F11.23 Opioid dependence with withdrawal (principal); F13.230 Sedative, hypnotic or anxiolytic dependence with withdrawal, uncomplicated; F10.230 Alcohol dependence with withdrawal, uncomplicated; F12.20 Cannabis dependence, uncomplicated; F17.210 Nicotine dependence, cigarettes, uncomplicated; F19.24 Other psychoactive substance dependence with psychoactive substance-induced mood disorder; F41.9 Anxiety disorder, unspecified; G47.00 Insomnia, unspecified; R00.0 Tachycardia, unspecified; R03.0 Elevated blood-pressure reading, without diagnosis of hypertension
CPT/HCPCS: 36415; 80053; 81003; 85027; 86593; 93005; 93010